=== PATIENT | female | born 1990 | race Caucasian/White ===

== ENCOUNTER 2016-06-23 16:53 | Emergency (ER) | payer MEDICAID ==
[2016-06-23] MEDS ORDERED: DEXAMETHASONE 10 MG/ML VIAL PO STA (18:34)
[2016-06-23] MEDS ORDERED: KETOROLAC 60 MG/2 ML VIAL IM STA (18:34)
[2016-06-23] MEDS ORDERED: DEXAMETHASONE 10 MG/ML VIAL ONE (18:43)
[2016-06-23] MEDS ORDERED: KETOROLAC 60 MG/2 ML VIAL ONE (18:43)
[2016-06-23] MEDS ORDERED: CHERRY SYRUP 10 ML UDC PO ONE (18:44)
== END 2016-06-23 19:15 | disposition home or self-care (01) ==
DX: M54.41 Lumbago with sciatica, right side (principal); F17.200 Nicotine dependence, unspecified, uncomplicated
CPT/HCPCS: 96372; 99283; A9270

== ENCOUNTER 2016-09-11 17:33 | Emergency (ER) | payer OTHER, MEDICAID ==
[2016-09-11] MEDS ORDERED: IBUPROFEN 800 MG TABLET PO STA (18:28)
[2016-09-11] MEDS ORDERED: IBUPROFEN 800 MG TABLET PO ONE (18:37)
[2016-09-11] MEDS ORDERED: ACETAMINOPHEN 325 MG TABLET PO STA (19:29)
[2016-09-11] MEDS ORDERED: ACETAMINOPHEN 325 MG TABLET PO ONE (19:32)
== END 2016-09-11 19:39 | disposition home or self-care (01) ==
DX: S60.211A Contusion of right wrist, initial encounter (principal); W01.0XXA Fall on same level from slipping, tripping and stumbling without subsequent striking against object, initial encounter; Y92.89 Other specified places as the place of occurrence of the external cause; Y99.0 Civilian activity done for income or pay; F17.200 Nicotine dependence, unspecified, uncomplicated
CPT/HCPCS: 73110; 99283; A9270

== ENCOUNTER 2016-09-19 18:01 | Emergency (ER) | payer MEDICAID ==
[2016-09-19 18:11] VITALS: BP 131/81
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
[2016-09-19] MEDS ORDERED: GABAPENTIN 100 MG CAPSULE PO STA (18:35)
[2016-09-19] MEDS ORDERED: CEPHALEXIN 250 MG CAPSULE PO STA (18:35)
[2016-09-19] MEDS ORDERED: ACETAMINOPHEN 325 MG TABLET PO STA (18:35)
[2016-09-19] MEDS ORDERED: IBUPROFEN 600 MG TABLET PO STA (18:35)
[2016-09-19] MEDS ORDERED: ACETAMINOPHEN 325 MG TABLET PO ONE (18:41)
[2016-09-19] MEDS ORDERED: GABAPENTIN 300 MG CAPSULE ONE (18:41)
[2016-09-19] MEDS ORDERED: IBUPROFEN 600 MG TABLET PO ONE (18:41)
[2016-09-19] MEDS ORDERED: CEPHALEXIN 250 MG CAPSULE PO ONE (18:42)
== END 2016-09-19 18:50 | disposition home or self-care (01) ==
LOC: ED 18:01
DX: K04.7 Periapical abscess without sinus (principal); G40.909 Epilepsy, unspecified, not intractable, without status epilepticus; F17.200 Nicotine dependence, unspecified, uncomplicated
CPT/HCPCS: 99283; A9270

== ENCOUNTER 2017-01-13 17:15 | Emergency (ER) | payer MEDICAID ==
[2017-01-13 19:44] VITALS: BP 118/73
--- NOTE | 2017-01-13 20:25 | ED Physician Documentation ---
PD HPI HEENT - Stated complaint Stated Complaint: DENTAL PAIN - Chief complaint Chief Complaint: Heent - History obtained from History obtained from: Patient - History of Present Illness Timing - onset: Chronic Timing - details: Gradual onset, Still present Location: Tooth, Mouth Improves: Nothing Worsens: Temperatures, Everything Associated symptoms: No: Fever, Congestion, Rhinorrhea Similar symptoms before: Work up / diagnostics Recently seen: Not recently seen - Additional information Additional information: Patient is a 26 year old female presenting to the emergency department for multiple dental caries. patient states that for the last few months her teeth have been falling apart. patient states that she tried to get an appointment with [facility] but could not get anything until february so she came to the emergency department. Review of Systems Constitutional: denies: Fever, Chills Eyes: denies: Decreased vision Ears: denies: Ear pain, Drainage/discharge Nose: denies: Rhinorrhea / runny nose, Congestion Throat: reports: Dental pain / toothache. denies: Oral lesions / sores, Sore throat Cardiac: denies: Chest pain / pressure Respiratory: denies: Wheezing GI: denies: Nausea, Vomiting : denies: Dysuria, Frequency Skin: denies: Rash, Lesions, Abrasion (s) Musculoskeletal: denies: Neck pain, Back pain, Extremity pain Neurologic: denies: Generalized weakness, Focal weakness, Altered mental status , Headache Immunocompromised: denies: Immunocompromised PD PAST MEDICAL HISTORY - Past Medical History Past Medical History: Yes Cardiovascular: None Respiratory: None Neuro: Headache/migraine, Seizure disorder Endocrine/Autoimmune: None GI: None 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 : None HEENT: None Psych: None Musculoskeletal: Chronic back pain Derm: None - Past Surgical History Past Surgical History: Yes General: Cholecystectomy HEENT: Tonsil/Adenoidectomy - Present Medications Home Medications: Ambulatory Orders Medication Instructions Recorded Confirmed Gabapentin 600 mg PO QID #120 tablet 02/20/16 01/13/17 Ibuprofen [Motrin] 800 mg PO Q8H PRN #30 tablet 09/11/16 01/13/17 Chlorhexidine Gluconate 15 ml MM QID #473 ml 01/13/17 Lidocaine HCl [Lidocaine HCl 15 ml MM TID #200 ml 01/13/17 Viscous] - Allergies Allergies/Adverse Reactions: Allergies Allergy/AdvReac Type Severity Reaction Status Date / Time codeine Allergy Hives Verified 01/13/17 17:30 nifedipine Allergy Hives Verified 01/13/17 17:30 - Social History Does the pt smoke?: Yes Smoking Status: Current every day smoker Does the pt drink ETOH?: No Does the pt have substance abuse?: No - Immunizations Immunizations are current?: Yes - POLST Patient has POLST: No PD ED PE NORMAL - Vitals Vital signs reviewed: Yes - General General: Alert and oriented X 3, No acute distress - HEENT HEENT: Atraumatic, PERRL, Moist mucous membranes, Pharynx benign - Neck Neck: Supple, no meningeal sign, No adenopathy, No JVD - Cardiac Cardiac: RRR, No murmur - Respiratory Respiratory: No respiratory distress - Abdomen Abdomen: Non distended - Derm Derm: Normal color, Warm and dry, No rash - Extremities Extremities: No deformity, No edema - Neuro Neuro: Alert and oriented X 3, No motor deficit, No sensory deficit, Normal speech - Psych Psych: Normal mood, Normal affect PD ED PE EXPANDED - HEENT HEENT: Other (multiple cracked teeth and dental caries but no signs of abscess, infection or fluid collection) Results - Vitals Vitals: Vital Signs - 24 hr 01/13/17 01/13/17 17:27 19:44 Temperature 36.5 C 36.5 C Heart Rate 90 71 Respiratory 16 18 Rate Blood Pressure 132/85 H 118/73 O2 Saturation 96 99 Oxygen O2 Source Room air PD MEDICAL DECISION MAKING - ED course Complexity details: reviewed old records, re-evaluated patient, considered differential, d/w patient ED course: Patient was seen and examined at bedside. Patient had no signs or abscess or fluid collection but multiple caries. Patient required no imaging or diagnostics at this time and patient was stable for discharge with outpatient follow up. Departure - Departure Disposition: 01 Home, Self Care Clinical Impression: Dental caries, Pain due to dental caries Condition: Good Instructions: Decay Tooth Follow-Up: primary,care provider [Other] Prescriptions: Chlorhexidine Gluconate 15 ml MM QID #473 ml Lidocaine HCl [Lidocaine HCl Viscous] 15 ml MM TID #200 ml Comments: There was no sign of abscess or fluid collection today. Sadly the only thing that is going to help is to get your teeth pulled. You should continue with motrin and tylenol for pain. You could try teeth guards for the grinding or even football mouth pieces. You have been prescribed an antibiotic mouth wash, as well as lidocaine that you can swish in your mouth and spit out. You should go to your dental appointment as you previously planned. Discharge Date/Time: 01/13/17 20:34
== END 2017-01-13 20:34 | disposition home or self-care (01) ==
LOC: ED 17:15
DX: K02.9 Dental caries, unspecified (principal); K08.89 Other specified disorders of teeth and supporting structures; F17.200 Nicotine dependence, unspecified, uncomplicated
CPT/HCPCS: 99283

== ENCOUNTER 2017-01-23 19:11 | Emergency (ER) | payer MEDICAID ==
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
[2017-01-23] MEDS ORDERED: GABAPENTIN 100 MG CAPSULE PO STA (21:12)
[2017-01-23] MEDS ORDERED: GABAPENTIN 300 MG CAPSULE ONE (21:21)
[2017-01-23 21:24] VITALS: BP 117/71
== END 2017-01-23 21:23 | disposition home or self-care (01) ==
LOC: ED 19:11
DX: K08.89 Other specified disorders of teeth and supporting structures (principal); Z76.0 Encounter for issue of repeat prescription; G40.909 Epilepsy, unspecified, not intractable, without status epilepticus; F17.200 Nicotine dependence, unspecified, uncomplicated
CPT/HCPCS: 99283; A9270

== ENCOUNTER 2017-02-10 16:53 | Emergency (ER) | payer MEDICAID ==
[2017-02-10 16:58] VITALS: BP 129/82
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
== END 2017-02-10 17:45 | disposition home or self-care (01) ==
LOC: ED 16:53
DX: Z76.0 Encounter for issue of repeat prescription (principal); G40.909 Epilepsy, unspecified, not intractable, without status epilepticus; L01.00 Impetigo, unspecified; F17.200 Nicotine dependence, unspecified, uncomplicated
CPT/HCPCS: 99283

== ENCOUNTER 2017-03-30 19:23 | Emergency (ER) | payer MEDICAID ==
[2017-03-30] MEDS ORDERED: SULFAMETH/TRIMETH DS 800/160 MG TABLET PO STA (20:22)
--- NOTE | 2017-03-30 20:25 | ED Physician Documentation ---
History of Present Illness - Stated complaint Stated Complaint: SKIN INFECTION - Chief complaint Chief Complaint: Ext Problem - History obtained from History obtained from: Patient - History of Present Illness Timing: Other (For the last few weeks she has had increasing numbers of skin wounds that are somewhat painful, they are all over. She does have a history of MRSA. No lesions in the nose. She feels like she has had some low-grade fevers. 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 02/10/17 Chlorhexidine Gluconate [Hibiclens] 5 ml TP DAILY #1 bot 03/30/17 Gabapentin 600 mg PO QID #40 tablet 03/30/17 Mupirocin 1 gm ALICIA BID #2 tub 03/30/17 Sulfamethoxazole/Trimethoprim 1 each PO BID 10 Days tablet 03/30/17 [Sulfamethoxazole-Tmp Ds Tablet] - Allergies Allergies/Adverse Reactions: Allergies Allergy/AdvReac Type Severity Reaction Status Date / Time codeine Allergy Hives Verified 03/30/17 19:46 nifedipine Allergy Hives Verified 03/30/17 19:46 - Social History Does the pt smoke?: Yes Smoking Status: Current every day smoker Does the pt drink ETOH?: No Does the pt have substance abuse?: No - Immunizations Immunizations are current?: Yes - POLST Patient has POLST: No PD ED PE NORMAL - Vitals Vital signs reviewed: Yes - General General: Alert and oriented X 3, No acute distress - Neck Neck: Supple, no meningeal sign, No bony TTP - Cardiac Cardiac: RRR, No murmur - Respiratory Respiratory: No respiratory distress, Clear bilaterally - Derm Derm: Other (Numerous scabbed over skin lesions on the trunk, arms. They appear consistent with staff. Nothing really to culture, I did swab a few of the larger ones which were no bigger than a dime. However there was no purulent material per se.) Results - Vitals Vitals: Vital Signs - 24 hr 03/30/17 19:42 Temperature 37.3 C Heart Rate 83 Respiratory 16 Rate Blood Pressure 122/79 O2 Saturation 100 Oxygen O2 Source Room air PD MEDICAL DECISION MAKING - ED course ED course: 26-year-old woman with what appears to be staphylococcal skin infection but no evidence of sepsis. She is started on Bactrim and treat also with Hibiclens, mupirocin, her gabapentin is refilled. Departure - Departure Disposition: 01 Home, Self Care Clinical Impression: Staph skin infection Condition: Good Record reviewed to determine appropriate education?: Yes Instructions: ED Skin Infec MRSA Suspect Conf Prescriptions: Chlorhexidine Gluconate [Hibiclens] 5 ml TP DAILY #1 bot Gabapentin 600 mg PO QID #40 tablet Mupirocin 1 gm ALICIA BID #2 tub Sulfamethoxazole/Trimethoprim [Sulfamethoxazole-Tmp Ds Tablet] 1 each PO BID 10 Days tablet Comments: Call your doctor to arrange a follow-up appointment, make the next available appointment. In the interim, return anytime if worse or if new symptoms develop. We are performing a wound culture, the results should be done in 48-72 hours. If antibiotic change is necessary we will call you. Return if worse in the meantime, especially if you develop increased pain, fevers, cannot keep down the medication. Otherwise follow-up with your physician in approximately 2-3 days.
[2017-03-30] MEDS ORDERED: SULFAMETH/TRIMETH DS 800/160 MG TABLET PO ONE (20:37)
[2017-03-30 20:41] VITALS: BP 108/71
== END 2017-03-30 20:40 | disposition home or self-care (01) ==
LOC: ED 19:23
DX: L08.89 Other specified local infections of the skin and subcutaneous tissue (principal); B95.62 Methicillin resistant Staphylococcus aureus infection as the cause of diseases classified elsewhere; F17.200 Nicotine dependence, unspecified, uncomplicated
CPT/HCPCS: 87070; 87205; 99283; A9270

== ENCOUNTER 2017-05-17 15:13 | Emergency (ER) | payer MEDICAID ==
[2017-05-17 15:22] VITALS: BP 110/74
--- NOTE | 2017-05-17 16:39 | ED Physician Documentation ---
History of Present Illness - Stated complaint Stated Complaint: MED REFILL - Chief complaint Chief Complaint: Back Pain - History obtained from History obtained from: Patient - History of Present Illness Timing: How many days ago (2) - Additonal information Additional information: 27-year-old female is moving back to the [place] and she is out of her gabapentin again. 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 She has been out of her gabapentin for 2 days and she is beginning to feel numbness in her right leg. 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 02/10/17 Chlorhexidine Gluconate [Hibiclens] 5 ml TP DAILY #1 bot 03/30/17 Gabapentin 600 mg PO QID #40 tablet 03/30/17 Mupirocin 1 gm ALICIA BID #2 tub 03/30/17 Sulfamethoxazole/Trimethoprim 1 each PO BID 10 Days tablet 03/30/17 [Sulfamethoxazole-Tmp Ds Tablet] Gabapentin 600 mg PO QID #120 tablet 05/17/17 - Allergies Allergies/Adverse Reactions: Allergies Allergy/AdvReac Type Severity Reaction Status Date / Time codeine Allergy Hives Verified 03/30/17 19:46 nifedipine Allergy Hives Verified 03/30/17 19:46 - Social History Does the pt smoke?: Yes Smoking Status: Current every day smoker Does the pt drink ETOH?: No Does the pt have substance abuse?: No - Immunizations Immunizations are current?: Yes - POLST Patient has POLST: No PD ED PE NORMAL - Vitals Vital signs reviewed: Yes (tachy) - General General: Alert and oriented X 3, No acute distress, Well developed/nourished - Respiratory Respiratory: No respiratory distress - Derm Derm: Normal color, Warm and dry, No rash - Extremities Extremities: No deformity, No edema - Neuro Neuro: No motor deficit, No sensory deficit Eye Opening: Spontaneous Motor: Obeys Commands Verbal: Oriented GCS Score: 15 - Psych Psych: Normal mood, Normal affect Results - Vitals Vitals: Vital Signs - 24 hr 05/17/17 15:19 Temperature 36.7 C Heart Rate 106 H Respiratory 18 Rate Blood Pressure 110/74 O2 Saturation 100 Oxygen O2 Source Room air PD MEDICAL DECISION MAKING - ED course Complexity details: reviewed old records, considered differential, d/w patient ED course: 27-year-old female on gabapentin for the past 3 years is out of her medication and will need a refill. She is expecting to get into an [facility] [facility] in about 3 weeks time in [place]. She has an appointment already set up for that time. I discussed with the patient self directed physical therapy for back rehabilitation and we will refill her gabapentin today. Departure - Departure Disposition: 01 Home, Self Care Clinical Impression: Medication refill Condition: Stable Instructions: Low Back Pain Self Care Follow-Up: Your, doctor [Other] Prescriptions: Gabapentin 600 mg PO QID #120 tablet
== END 2017-05-17 16:43 | disposition home or self-care (01) ==
LOC: ED 15:13
DX: G40.909 Epilepsy, unspecified, not intractable, without status epilepticus (principal); G62.9 Polyneuropathy, unspecified; Z76.0 Encounter for issue of repeat prescription; F17.200 Nicotine dependence, unspecified, uncomplicated
CPT/HCPCS: 99281; 99283

== ENCOUNTER 2017-08-18 20:19 | Emergency (ER) | payer MEDICAID ==
--- NOTE | 2017-08-18 22:40 | ED Physician Documentation ---
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 02/10/17 Chlorhexidine Gluconate [Hibiclens] 5 ml TP DAILY #1 bot 03/30/17 Gabapentin 600 mg PO QID #40 tablet 03/30/17 Mupirocin 1 gm ALICIA BID #2 tub 03/30/17 Sulfamethoxazole/Trimethoprim 1 each PO BID 10 Days tablet 03/30/17 [Sulfamethoxazole-Tmp Ds Tablet] Gabapentin 600 mg PO QID #120 tablet 05/17/17 - Allergies Allergies/Adverse Reactions: Allergies Allergy/AdvReac Type Severity Reaction Status Date / Time codeine Allergy Hives Verified 08/18/17 20:35 nifedipine Allergy Hives Verified 08/18/17 20:35 - Social History Does the pt smoke?: Yes Smoking Status: Current every day smoker Does the pt drink ETOH?: No Does the pt have substance abuse?: No - Immunizations Immunizations are current?: Yes - POLST Patient has POLST: No Results - Vitals Vitals: Vital Signs - 24 hr 08/18/17 20:34 Temperature 36.8 C Heart Rate 70 Respiratory 18 Rate Blood Pressure 118/76 O2 Saturation 99 Oxygen O2 Source Room air
[2017-08-18] MEDS ORDERED: NAPROXEN 250 MG TABLET PO STA (22:49)
[2017-08-18] MEDS ORDERED: cephALEXin 250 MG CAPSULE PO STA (22:49)
[2017-08-18] MEDS ORDERED: GABAPENTIN 100 MG CAPSULE PO STA (22:49)
[2017-08-18] MEDS ORDERED: traMADol 50 MG TABLET PO STA (22:50)
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
[2017-08-18 23:00] VITALS: BP 120/72
== END 2017-08-18 22:59 | disposition home or self-care (01) ==
LOC: ED 20:19
DX: K04.7 Periapical abscess without sinus (principal); K02.9 Dental caries, unspecified; K08.89 Other specified disorders of teeth and supporting structures; G89.29 Other chronic pain; Z76.0 Encounter for issue of repeat prescription; G40.909 Epilepsy, unspecified, not intractable, without status epilepticus; Z79.899 Other long term (current) drug therapy; F17.200 Nicotine dependence, unspecified, uncomplicated
CPT/HCPCS: 99283; A9270

== ENCOUNTER 2017-09-28 18:57 | Emergency (ER) | payer MEDICAID ==
[2017-09-28 19:08] VITALS: BP 126/73
[2017-09-28] MEDS ORDERED: CLINDAMYCIN 150 MG CAPSULE PO STA (20:22)
[2017-09-28] MEDS ORDERED: ACETAMINOPHEN 500 MG TABLET PO STA (20:22)
--- NOTE | 2017-09-28 20:26 | ED Physician Documentation ---
PD HPI SKIN - Stated complaint Stated Complaint: LF ELBOW PLANT REACTION - Chief complaint Chief Complaint: Ext Problem - History obtained from History obtained from: Patient, Family - History of Present Illness Timing - onset: Yesterday Timing - details: Gradual onset, Still present Location: LUE Quality / character: Painful, Discolored Associated symptoms: Fever Contributing factors: Other Recently seen: Not recently seen - Additional information Additional information: patient is a 27 year old female presenting to the emergency department for a rash on her elbow. 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 Yesterday she started to develop a worsening rash. patient does report a history of mrsa in the past. 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 02/10/17 Chlorhexidine Gluconate [Hibiclens] 5 ml TP DAILY #1 bot 03/30/17 Gabapentin 600 mg PO QID #40 tablet 03/30/17 Mupirocin 1 gm ALICIA BID #2 tub 03/30/17 Sulfamethoxazole/Trimethoprim 1 each PO BID 10 Days tablet 03/30/17 [Sulfamethoxazole-Tmp Ds Tablet] Gabapentin 600 mg PO QID #120 tablet 05/17/17 Cephalexin [Keflex] 500 mg PO TID #20 capsule 08/18/17 Gabapentin 600 mg PO QID #100 tablet 08/18/17 Naproxen 375 mg PO BID #20 tablet 08/18/17 Clindamycin HCl [Clindamycin 300MG 300 mg PO Q6H 7 Days capsule 09/28/17 CAP] - Allergies Allergies/Adverse Reactions: Allergies Allergy/AdvReac Type Severity Reaction Status Date / Time codeine Allergy Hives Verified 09/28/17 19:07 nifedipine Allergy Hives Verified 09/28/17 19:07 - Social History Does the pt smoke?: Yes Smoking Status: Current every day smoker Does the pt drink ETOH?: No Does the pt have substance abuse?: No - Immunizations Immunizations are current?: Yes - POLST Patient has POLST: No PD ED PE NORMAL - Vitals Vital signs reviewed: Yes - General General: Alert and oriented X 3 - HEENT HEENT: Atraumatic - Cardiac Cardiac: RRR - Respiratory Respiratory: No respiratory distress - Abdomen Abdomen: Non distended - Neuro Neuro: Alert and oriented X 3 Eye Opening: Spontaneous PD ED PE EXPANDED - Extremities Extremities: Left elbow (well circumscribed rash over the right elbow) Results - Vitals Vitals: Vital Signs - 24 hr 09/28/17 19:02 Temperature 36.1 C L Heart Rate 88 Respiratory 20 Rate Blood Pressure 126/73 O2 Saturation 100 Oxygen O2 Source Room air PD MEDICAL DECISION MAKING - ED course Complexity details: reviewed old records, reviewed results, re-evaluated patient , considered differential, d/w patient, d/w family ED course: patient was seen and examined at bedside. patient's rash appeared to be cellulitic. Patient's rash was outlined and due to patient's history MRSA coverage was required. Patient was given the options and she chose clindamycin. Patient and family were made aware that there was a possibility of sporotrichosis with detailed discharge and follow up instructions. there was no lesion to culture at this time. patient required no further work up at this time and was stable for discharge with outpatient follow up. Departure - Departure Disposition: 01 Home, Self Care Clinical Impression: Cellulitis Condition: Good Instructions: Cellulitis Dc Follow-Up: primary,care provider [Other] Prescriptions: Clindamycin HCl [Clindamycin 300MG CAP] 300 mg PO Q6H 7 Days capsule Comments: Your symptoms today are most likely being caused by a skin infection. you will be started on antibiotics that you take 4 times a day. you should start to see improvement over the next 48hours. There is a chance that this is a fugal infection so you will need to watch the wound closer and look for ulceration and spreading. you should take the antibiotic with yogurt or probiotics to help reduce the GI side effects. You can take ibuprofen 600mg and tylenol 1000mg, as well as ice as needed for pain. You may return to the emergency department at any time for new, worsening or uncontrollable symptoms. Discharge Date/Time: 09/28/17 20:28
== END 2017-09-28 20:28 | disposition home or self-care (01) ==
LOC: ED 18:57
DX: L03.114 Cellulitis of left upper limb (principal); Z86.14 Personal history of Methicillin resistant Staphylococcus aureus infection; F17.200 Nicotine dependence, unspecified, uncomplicated
CPT/HCPCS: 99283; A9270

== ENCOUNTER 2017-11-16 15:23 | Emergency (ER) | payer MEDICAID ==
--- NOTE | 2017-11-16 15:45 | ED Physician Documentation ---
PD HPI HEENT - Stated complaint Stated Complaint: TOOTH PX - Chief complaint Chief Complaint: Heent - History obtained from History obtained from: Patient - History of Present Illness Timing - onset: How many weeks ago (1 week of pain, got worse yesterday. Tried to get dental appt but appt not for couple of weeks.) Timing - details: Gradual onset, Still present, Constant Location: Tooth (right lower) Associated symptoms: Facial swelling (mild right mandible). 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 02/10/17 Chlorhexidine Gluconate [Hibiclens] 5 ml TP DAILY #1 bot 03/30/17 Gabapentin 600 mg PO QID #40 tablet 03/30/17 Mupirocin 1 gm ALICIA BID #2 tub 03/30/17 Sulfamethoxazole/Trimethoprim 1 each PO BID 10 Days tablet 03/30/17 [Sulfamethoxazole-Tmp Ds Tablet] Gabapentin 600 mg PO QID #120 tablet 05/17/17 Cephalexin [Keflex] 500 mg PO TID #20 capsule 08/18/17 Gabapentin 600 mg PO QID #100 tablet 08/18/17 Naproxen 375 mg PO BID #20 tablet 08/18/17 Clindamycin HCl [Clindamycin 300MG 300 mg PO Q6H 7 Days capsule 09/28/17 CAP] Cephalexin [Keflex] 500 mg PO TID #21 capsule 11/16/17 HYDROcod/ACETAM 5/325 [Enigma 5/325] 1 tab PO Q6H PRN #20 tablet 11/16/17 - Allergies Allergies/Adverse Reactions: Allergies Allergy/AdvReac Type Severity Reaction Status Date / Time codeine Allergy Hives Verified 11/16/17 15:32 nifedipine Allergy Hives Verified 11/16/17 15:32 - Social History Does the pt smoke?: Yes Smoking Status: Current every day smoker Does the pt drink ETOH?: No Does the pt have substance abuse?: No - Immunizations Immunizations are current?: Yes - POLST Patient has POLST: No PD ED PE NORMAL - Vitals Vital signs reviewed: Yes - General General: Alert and oriented X 3, Well developed/nourished, Other (appears in pain) - HEENT HEENT: No: Dentition benign (marked decay of molars lower right, with some swelling of gum at the base of them. ) - Neck Neck: Supple, no meningeal sign, No adenopathy - Cardiac Cardiac: RRR, No murmur - Respiratory Respiratory: Clear bilaterally - Derm Derm: Normal color, Warm and dry, No rash Results - Vitals Vitals: Oxygen O2 Source Room air PD MEDICAL DECISION MAKING - ED course Complexity details: re-evaluated patient (no numbness of teeth nor lip post dental block, so tried again and still no numbness. So I did not get it in correct location presumedly. ), considered differential (some swelling of gum around base of very decayed tooth. ), d/w patient - Sepsis Event Vital Signs: Oxygen O2 Source Room air Departure - Departure Disposition: 01 Home, Self Care Clinical Impression: Pain, dental, Dental infection Condition: Stable Record reviewed to determine appropriate education?: Yes Instructions: ED Abscess Dental Prescriptions: Cephalexin [Keflex] 500 mg PO TID #21 capsule HYDROcod/ACETAM 5/325 [Enigma 5/325] 1 tab PO Q6H PRN #20 tablet PRN Reason: Pain Comments: Drink lots of fluids. Ibuprofen or naproxen 2-3 times a day for inflammation and pain. Add Tylenol or hydrocodone if needed for pain. Cephalexin 3 times a day for a week for infection. Follow-up with dentist as soon as appointment. Discharge Date/Time: 11/16/17 17:32
[2017-11-16] MEDS ORDERED: BUPIVACAINE 0.5% PF 10 ML VIAL SUBQ STA (16:04)
[2017-11-16] MEDS ORDERED: cephALEXin 250 MG CAPSULE PO STA (16:05)
[2017-11-16] MEDS ORDERED: IBUPROFEN 600 MG TABLET PO STA (16:05)
[2017-11-16 17:06] VITALS: BP 116/61
[2017-11-16] MEDS ORDERED: HYDROcod/ACETAM 5/325 MG TABLET PO STA (17:18)
== END 2017-11-16 17:32 | disposition home or self-care (01) ==
LOC: ED 15:23
DX: K04.7 Periapical abscess without sinus (principal)
CPT/HCPCS: 99283; A9270

== ENCOUNTER 2017-12-27 15:53 | Emergency (ER) | payer MEDICAID ==
[2017-12-27] MEDS ORDERED: DEXAMETHASONE 10 MG/ML VIAL PO STA (17:09)
[2017-12-27] MEDS ORDERED: oxyCODONE 5 MG TABLET PO STA (17:10)
--- NOTE | 2017-12-27 17:12 | ED Physician Documentation ---
History of Present Illness - Stated complaint Stated Complaint: MOUTH SWELLING - Chief complaint Chief Complaint: Heent - History obtained from History obtained from: Patient, Family - History of Present Illness Timing: How many days ago (several days) Pain level max: 8 Pain level now: 7 - Additonal information Additional information: Patient is a 27-year-old female who was at her dentist 2 days ago and told that she has infected teeth that need to be removed, however she had a wedding this weekend and did not want them removed until after the wedding. She began to develop facial swelling yesterday, was seen at [facility] where a CT scan and laboratory testing was performed. There were no drainable abscesses at that time. She was given IV antibiotics as well as dexamethasone, 10 mg IV. Also given IV fluids. And was discharged on clindamycin as well as oxycodone. She has stopped her Suboxone while she is taking the oxycodone. She states that she had a fever yesterday as well. No fevers today. Feeling much improved and decreased swelling in the face. She is however out of her oxycodone as they only gave her 2 pills and her dentist is out of town until Thursday. She is requesting a refill of pain medications here. 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 02/10/17 Chlorhexidine Gluconate [Hibiclens] 5 ml TP DAILY #1 bot 03/30/17 Gabapentin 600 mg PO QID #40 tablet 03/30/17 Mupirocin 1 gm ALICIA BID #2 tub 03/30/17 Sulfamethoxazole/Trimethoprim 1 each PO BID 10 Days tablet 03/30/17 [Sulfamethoxazole-Tmp Ds Tablet] Gabapentin 600 mg PO QID #120 tablet 05/17/17 Cephalexin [Keflex] 500 mg PO TID #20 capsule 08/18/17 Gabapentin 600 mg PO QID #100 tablet 08/18/17 Naproxen 375 mg PO BID #20 tablet 08/18/17 Clindamycin HCl [Clindamycin 300MG 300 mg PO Q6H 7 Days capsule 09/28/17 CAP] Cephalexin [Keflex] 500 mg PO TID #21 capsule 11/16/17 HYDROcod/ACETAM 5/325 [[place] 5/325] 1 tab PO Q6H PRN #20 tablet 11/16/17 Oxycodone HCl 10 mg PO Q6HR PRN #10 tablet 12/27/17 - Allergies Allergies/Adverse Reactions: Allergies Allergy/AdvReac Type Severity Reaction Status Date / Time codeine Allergy Hives Verified 12/27/17 16:07 nifedipine Allergy Hives Verified 12/27/17 16:07 - Social History Does the pt smoke?: Yes Smoking Status: Current every day smoker Does the pt drink ETOH?: No Does the pt have substance abuse?: No - Immunizations Immunizations are current?: Yes - POLST Patient has POLST: No PD ED PE NORMAL - Vitals Vital signs reviewed: Yes - General General: Alert and oriented X 3, No acute distress - HEENT HEENT: Moist mucous membranes, Other (Uvula midline. There is mild facial swelling along the right lower mandible. No drainable abscess. No Elias's angina. Mild trismus. Normal phonation) - Neck Neck: Supple, no meningeal sign, Other (Mild right sided cervical lymphadenopathy) - Cardiac Cardiac: RRR, No murmur, Strong equal pulses - Respiratory Respiratory: No respiratory distress, Clear bilaterally - Abdomen Abdomen: Soft, Non tender, Non distended - Derm Derm: Warm and dry - Neuro Neuro: Alert and oriented X 3 - Psych Psych: Normal mood, Normal affect Results - Vitals Vitals: Vital Signs - 24 hr 12/27/17 12/27/17 16:03 17:28 Temperature 36.4 C L 36.6 C Heart Rate 70 67 Respiratory 18 12 Rate Blood Pressure 118/66 100/62 O2 Saturation 100 99 Oxygen O2 Source Room air PD MEDICAL DECISION MAKING - ED course Complexity details: reviewed old records ([place] ED visit yesterday), re- evaluated patient, considered differential, d/w patient ED course: Patient is a 27-year-old female with dental caries and facial cellulitis. No drainable abscess today. She is much improved from yesterday. Will prescribe a small amount of pain medications for her until she can see her dentist on Thursday. We will have her continue the antibiotics. Tolerating p.o. without difficulty here. Given a second dose of dexamethasone here. Patient counseled regarding signs and symptoms for which I believe and urgent re-evaluation would be necessary. Patient with good understanding of and agreement to plan and is comfortable going home at this time This document was made in part using voice recognition software. While efforts are made to proofread this document, sound alike and grammatical errors may occur. - Sepsis Event Vital Signs: Vital Signs - 24 hr 12/27/17 12/27/17 16:03 17:28 Temperature 36.4 C L 36.6 C Heart Rate 70 67 Respiratory 18 12 Rate Blood Pressure 118/66 100/62 O2 Saturation 100 99 Oxygen O2 Source Room air Departure - Departure Disposition: 01 Home, Self Care Clinical Impression: Dental caries, Facial cellulitis Condition: Good Instructions: ED Cellulitis Facial, ED Tooth Pain Follow-Up: ZANA CUEVA DDS [Physician No Access] - Within 3 Days Prescriptions: Oxycodone HCl 10 mg PO Q6HR PRN #10 tablet PRN Reason: dental pain Comments: Continue your antibiotics as previously prescribed. Return if you worsen. This should improve over the next 24 hours. Make sure to follow-up with your dentist for further care. Do not drink alcohol or drive while on narcotic pain medicine. Note that many narcotic pain relievers also contain tylenol/acetaminophen. Please ensure that your total dose of acetaminophen from all sources does not exceed 3 grams (3000mg) per day. You may constipated on this medication, take a stool softener such as "Colace" twice a day while you are on it. Also recommend a [id number] laxative such as senna or MiraLAX any day that you do not have a bowel movement. If you received narcotic pain medication in the emergency department, do not drive or operate machinery for the next 24 hours. Discharge Date/Time: 12/27/17 17:31
[2017-12-27] MEDS ORDERED: CHERRY SYRUP 10 ML UDC PO ONE (17:20)
[2017-12-27 17:30] VITALS: BP 100/62
== END 2017-12-27 17:31 | disposition home or self-care (01) ==
LOC: ED 15:53
DX: K02.9 Dental caries, unspecified (principal); L03.211 Cellulitis of face; F17.200 Nicotine dependence, unspecified, uncomplicated
CPT/HCPCS: 99283; A9270

== ENCOUNTER 2018-03-19 17:03 | Emergency (ER) | payer MEDICAID ==
[2018-03-19 17:18] VITALS: BP 120/92
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
== END 2018-03-19 17:50 | disposition home or self-care (01) ==
LOC: ED 17:03
DX: Z76.0 Encounter for issue of repeat prescription (principal); Z79.899 Other long term (current) drug therapy; F17.200 Nicotine dependence, unspecified, uncomplicated
CPT/HCPCS: 99283

== ENCOUNTER 2018-05-12 18:33 | Emergency (ER) | payer MEDICAID ==
--- NOTE | 2018-05-12 19:02 | ED Physician Documentation ---
PD HPI CHEST PAIN - Stated complaint Stated Complaint: SOA - Chief complaint Chief Complaint: Resp - History obtained from History obtained from: Patient - History of Present Illness Timing - onset: Other (For the last 2 weeks or so she has had inexplicable shortness of breath with some mild pain with deep breathing on the left chest when she takes a deep breath. There is no associated cough, fever, or runny nose, or pedal edema. She is on Nexplanon for control. No history of cardiac or pulmonary disease.) Review of Systems Constitutional: denies: Fever, Chills Nose: denies: Rhinorrhea / runny nose, Congestion Cardiac: reports: Chest pain / pressure. denies: Palpitations, Pedal edema, Calf pain Respiratory: reports: Dyspnea. 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 02/10/17 RX: Gabapentin 600 mg PO QID #120 tablet 02/10/17 Chlorhexidine Gluconate [Hibiclens] 5 ml TP DAILY #1 bot 03/30/17 RX: Gabapentin 600 mg PO QID #40 tablet 03/30/17 RX: Mupirocin 1 gm ALICIA BID #2 tub 03/30/17 Sulfamethoxazole/Trimethoprim 1 each PO BID 10 Days tablet 03/30/17 [Sulfamethoxazole-Tmp Ds Tablet] RX: Gabapentin 600 mg PO QID #120 tablet 05/17/17 Cephalexin [Keflex] 500 mg PO TID #20 capsule 08/18/17 RX: Gabapentin 600 mg PO QID #100 tablet 08/18/17 RX: Naproxen 375 mg PO BID #20 tablet 08/18/17 RX: Clindamycin HCl [Clindamycin 300 mg PO Q6H 7 Days capsule 09/28/17 300MG CAP] Cephalexin [Keflex] 500 mg PO TID #21 capsule 11/16/17 HYDROcod/ACETAM 5/325 [[place] 5/325] 1 tab PO Q6H PRN #20 tablet 11/16/17 RX: Oxycodone HCl 10 mg PO Q6HR PRN #10 tablet 12/27/17 RX: Gabapentin 600 mg PO TID #21 tablet 03/19/18 RX: Albuterol Sulf [Ventolin Hfa 1 - 2 puffs INH Q4HR PRN #1 inhaler 05/12/18 Inhaler] - Allergies Allergies/Adverse Reactions: Allergies Allergy/AdvReac Type Severity Reaction Status Date / Time codeine Allergy Hives Verified 05/12/18 18:56 nifedipine Allergy Hives Verified 05/12/18 18:56 - Social History Does the pt smoke?: Yes Smoking Status: Current every day smoker Does the pt drink ETOH?: No Does the pt have substance abuse?: No - Immunizations Immunizations are current?: Yes - POLST Patient has POLST: No PD ED PE NORMAL - Vitals Vital signs reviewed: Yes - General General: Alert and oriented X 3, No acute distress - HEENT HEENT: PERRL, EOMI - Neck Neck: Supple, no meningeal sign, No bony TTP - Cardiac Cardiac: RRR, No murmur - Respiratory Respiratory: No respiratory distress, Other (Focal mild wheeze at the left base) - Abdomen Abdomen: Non tender - Extremities Extremities: No edema, No calf tenderness / cord - Neuro Neuro: Alert and oriented X 3, Normal speech - Psych Psych: Normal mood, Normal affect Results - Vitals Vitals: Vital Signs - 24 hr 05/12/18 05/12/18 18:53 19:02 Temperature 37.0 C 36.7 C Heart Rate 90 93 Respiratory 18 18 Rate Blood Pressure 132/70 H 123/75 O2 Saturation 100 100 Oxygen O2 Source Room air - EKG (time done) 1934 Rate: Rate (enter#) (83) Rhythm: NSR [place]: Normal Intervals: Normal GA QRS: Normal Ischemia: Normal ST segments Computer interpretation: Agree with computer - Labs Labs: Laboratory Tests 05/12/18 05/12/18 05/12/18 19:09 19:09 19:09 WBC 10.8 RBC 4.24 Hgb 13.8 Hct 41.2 MCV 97.2 MCH 32.6 H MCHC 33.5 RDW 13.6 Plt Count 184 MPV 9.6 Neut # (Auto) 7.6 H Lymph # (Auto) 2.3 Cochran # (Auto) 0.5 Eos # (Auto) 0.3 Baso # (Auto) 0.1 Absolute Nucleated RBC 0.01 Nucleated RBC % 0.1 D-Dimer < 200.0 L Sodium 137 Potassium 3.5 Chloride 103 Carbon Dioxide 28 Anion Gap 6.0 BUN 6 Creatinine 0.6 Estimated GFR (MDRD) 119 Glucose 89 Calcium 8.9 Total Bilirubin 0.3 AST 24 ALT 22 Alkaline Phosphatase 77 Total Protein 6.4 L Albumin 4.2 Globulin 2.2 Albumin/Globulin Ratio 1.9 Lipase 28 Urine Color Urine Clarity Urine pH Ur Specific [place] Urine Protein Urine Glucose (UA) Urine Ketones Urine Occult Blood Urine Nitrite Urine Bilirubin Urine Urobilinogen Ur Leukocyte Esterase Ur Microscopic Review Urine Culture Comments Urine HCG, Qual 05/12/18 19:25 WBC RBC Hgb Hct MCV MCH MCHC RDW Plt Count MPV Neut # (Auto) Lymph # (Auto) Cochran # (Auto) Eos # (Auto) Baso # (Auto) Absolute Nucleated RBC Nucleated RBC % D-Dimer Sodium Potassium Chloride Carbon Dioxide Anion Gap BUN Creatinine Estimated GFR (MDRD) Glucose Calcium Total Bilirubin AST ALT Alkaline Phosphatase Total Protein Albumin Globulin Albumin/Globulin Ratio Lipase Urine Color YELLOW Urine Clarity CLEAR Urine pH 7.0 Ur Specific [place] 1.015 Urine Protein NEGATIVE Urine Glucose (UA) NEGATIVE Urine Ketones NEGATIVE Urine Occult Blood NEGATIVE Urine Nitrite NEGATIVE Urine Bilirubin NEGATIVE Urine Urobilinogen 0.2 (NORMAL) Ur Leukocyte Esterase NEGATIVE Ur Microscopic Review NOT INDICATED Urine Culture Comments NOT INDICATED Urine HCG, Qual NEGATIVE - Rads (name of study) 2v chest Radiology: EMP read contemporaneously (Normal) PD MEDICAL DECISION MAKING - ED course ED course: 28-year-old woman presents with shortness of breath and pleuritic chest pain. Has a focal wheeze of the left base in light of a normal chest x-ray. Ruled out for PE with d-dimer and the remainder of her workup including troponin and EKG and chest x-ray are negative. Departure - Departure Disposition: 01 Home, Self Care Clinical Impression: Dyspnea Condition: Good Record reviewed to determine appropriate education?: Yes Instructions: ED Dyspnea Shortness of Breath Prescriptions: RX: Albuterol Sulf [Ventolin Hfa Inhaler] 1 - 2 puffs INH Q4HR PRN #1 inhaler PRN Reason: Shortness Of Air/Wheezing Comments: Call your doctor to arrange a follow-up appointment, make the next available appointment. In the interim, return anytime if worse or if new symptoms develop. Discharge Date/Time: 05/12/18 20:02
[2018-05-12 19:03] VITALS: BP 123/75
[2018-05-12 19:16] LABS: BASOPHILS # (AUTO) 0.1 10^3/uL (0.0-0.1); BASOPHILS % (AUTO) 0.7 %; EOSINOPHILS # (AUTO) 0.3 10^3/uL (0.0-0.7); EOSINOPHILS % (AUTO) 3.2 %; HGB - HEMOGLOBIN 13.8 g/dL (12.0-16.0); LYMPHOCYTES # (AUTO) 2.3 10^3/uL (1.5-3.5); LYMPHOCYTES % (AUTO) 21.1 %; MEAN CORPUSCULAR HEMOGLOBIN 32.6 pg (27.0-31.0); MEAN CORPUSCULAR HGB CONC 33.5 g/dL (32.0-36.0); MEAN CORPUSCULAR VOLUME 97.2 fL (81.0-99.0); MEAN PLATELET VOLUME 9.6 fL (7.9-10.8); MONOCYTES # (AUTO) 0.5 10^3/uL (0.0-1.0); MONOCYTES % (AUTO) 4.9 %; NEUTROPHILS # (AUTO) 7.6 10^3/uL (1.5-6.6); NEUTROPHILS % (AUTO) 70.1 %; PLT - PLATELET COUNT 184 10^3/uL (130-450); RED BLOOD COUNT 4.24 10^6/uL (4.20-5.40); RED CELL DISTRIBUTION WIDTH 13.6 % (12.0-15.0); WHITE BLOOD COUNT 10.8 x10^3/uL (4.8-10.8)
[2018-05-12 19:26] LABS: ALBUMIN 4.2 g/dL (3.2-5.5); ALBUMIN/GLOBULIN RATIO 1.9 (1.0-2.2); BILIRUBIN,TOTAL 0.3 mg/dL (0.2-1.0); CALCIUM 8.9 mg/dL (8.5-10.3); CREATININE 0.6 mg/dL (0.4-1.0); TOTAL PROTEIN 6.4 g/dL (6.7-8.2)
[2018-05-12 19:36] LABS: BILIRUBIN,URINE NEGATIVE (NEGATIVE); GLUCOSE, URINE (UA) NEGATIVE (NEGATIVE); KETONES,URINE (UA) NEGATIVE (NEGATIVE); LEUKOCYTE ESTERASE, URINE NEGATIVE (NEGATIVE); NITRITE,URINE NEGATIVE (NEGATIVE); OCCULT BLOOD,URINE NEGATIVE (NEGATIVE); PROTEIN,URINE NEGATIVE (NEGATIVE); UROBILINOGEN,URINE 0.2 (NORMAL) E.U./dL (NORMAL)
[2018-05-12 19:39] LABS: CLARITY,URINE CLEAR (CLEAR); HCG UR QUAL NEGATIVE
--- NOTE | 2018-05-12 20:04 | XRAY Report ---
Reason: dyspnea Procedure Date: 05/12/2018 Accession Number: [id number] / [id number] Procedure: XR - Chest 2 View X-Ray CPT Code: 08056 FULL RESULT: EXAM: CHEST RADIOGRAPHY EXAM DATE: 05/12/2018 07:08 PM. CLINICAL HISTORY: Dyspnea. COMPARISON: XR CHEST PA AND LAT 12/16/2010 2:39 PM. TECHNIQUE: 2 views. FINDINGS: Lungs/Pleura: No focal opacities evident. No pleural effusion. No pneumothorax. Normal volumes. Mediastinum: Heart and mediastinal contours are unremarkable. Other: No bony abnormalities noted. IMPRESSION: Normal 2-view chest radiography. RADIA
== END 2018-05-12 20:02 | disposition home or self-care (01) ==
LOC: ED 18:33
DX: R06.00 Dyspnea, unspecified (principal); F17.200 Nicotine dependence, unspecified, uncomplicated
CPT/HCPCS: 36415; 71046; 80053; 81001; 81003; 81025; 83690; 85025; 85379; 87086; 93005; 99283

== ENCOUNTER 2018-06-28 19:31 | Emergency (ER) | payer MEDICAID ==
[2018-06-28 19:41] VITALS: BP 136/92
[2018-06-28] MEDS ORDERED: GABAPENTIN 100 MG CAPSULE PO STA (19:55)
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
== END 2018-06-28 20:02 | disposition home or self-care (01) ==
LOC: ED 19:31
DX: M54.5 Low back pain (principal); G89.29 Other chronic pain; Z76.0 Encounter for issue of repeat prescription; R03.0 Elevated blood-pressure reading, without diagnosis of hypertension; F17.200 Nicotine dependence, unspecified, uncomplicated
CPT/HCPCS: 99282; 99283; A9270

== ENCOUNTER 2018-10-17 14:56 | Emergency (ER) | payer MEDICAID ==
[2018-10-17 15:20] VITALS: BP 131/86
--- NOTE | 2018-10-17 15:35 | ED Physician Documentation ---
PD HPI BACK PAIN - Stated complaint Stated Complaint: MED REFILL - Chief complaint Chief Complaint: General - History obtained from History obtained from: Patient - History of Present Illness Timing - onset: How many weeks ago (has had increasing back pain but no seizures, since running out of her gabapentin.) Timing - duration: Days (chronic back pain but otherwise the pain is worse today.) Timing - details: Gradual onset, Waxing and waning Location: Lower, Left Quality: Pain, Spasm Improves with: Position Worsened by: Movement Contributing factors: No: Lifting, Twisting Review of Systems Constitutional: denies: Fever, Chills, Myalgias Eyes: denies: Loss of vision, Decreased vision, Photophobia Nose: denies: Rhinorrhea / runny nose, Congestion Throat: denies: Sore throat Respiratory: denies: Cough Neurologic: reports: Generalized weakness. 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 02/10/17 Chlorhexidine Gluconate [Hibiclens] 5 ml TP DAILY #1 bot 03/30/17 Gabapentin 600 mg PO QID #40 tablet 03/30/17 Mupirocin 1 gm ALICIA BID #2 tub 03/30/17 Sulfamethoxazole/Trimethoprim 1 each PO BID 10 Days tablet 03/30/17 [Sulfamethoxazole-Tmp Ds Tablet] Gabapentin 600 mg PO QID #120 tablet 05/17/17 Cephalexin [Keflex] 500 mg PO TID #20 capsule 08/18/17 Gabapentin 600 mg PO QID #100 tablet 08/18/17 Naproxen 375 mg PO BID #20 tablet 08/18/17 Clindamycin HCl [Clindamycin 300MG 300 mg PO Q6H 7 Days capsule 09/28/17 CAP] Cephalexin [Keflex] 500 mg PO TID #21 capsule 11/16/17 HYDROcod/ACETAM 5/325 [[place] 5/325] 1 tab PO Q6H PRN #20 tablet 11/16/17 Oxycodone HCl 10 mg PO Q6HR PRN #10 tablet 12/27/17 Gabapentin 600 mg PO TID #21 tablet 03/19/18 Albuterol Sulf [Ventolin Hfa 1 - 2 puffs INH Q4HR PRN #1 inhaler 05/12/18 Inhaler] Gabapentin 600 mg PO TID #9 tablet 06/28/18 Gabapentin 600 mg PO TID #90 tablet 10/17/18 - Allergies Allergies/Adverse Reactions: Allergies Allergy/AdvReac Type Severity Reaction Status Date / Time codeine Allergy Hives Verified 10/17/18 15:20 nifedipine Allergy Hives Verified 10/17/18 15:20 - Social History Does the pt smoke?: Yes Smoking Status: Current every day smoker Does the pt drink ETOH?: No Does the pt have substance abuse?: No - Immunizations Immunizations are current?: Yes - POLST Patient has POLST: No PD ED PE NORMAL - Vitals Vital signs reviewed: Yes - General General: Alert and oriented X 3, No acute distress, Well developed/nourished - HEENT HEENT: Pharynx benign - Neck Neck: Supple, no meningeal sign, No adenopathy - Cardiac Cardiac: RRR, No murmur - Respiratory Respiratory: Clear bilaterally - Derm Derm: Normal color, Warm and dry, No rash - Extremities Extremities: No tenderness to palpate, Normal ROM s pain, No edema, No calf tenderness / cord Results - Vitals Vitals: Oxygen O2 Source Room air Departure - Departure Disposition: Home, Self Care Clinical Impression: Seizure disorder, No mechanism for timely refill of medication Sciatica Qualifiers: Laterality: unspecified laterality Qualified Code(s): M54.30 - Sciatica, unspecified side Condition: Stable Record reviewed to determine appropriate education?: Yes Follow-Up: [facility] [Provider Group] Prescriptions: Gabapentin 600 mg PO TID #90 tablet Comments: Continue usual medications. Follow-up with the new clinic provider at first available appointment. Stay well-hydrated. Return as needed. Discharge Date/Time: 10/17/18 16:00
[2018-10-17] MEDS ORDERED: GABAPENTIN 100 MG CAPSULE PO STA (15:47)
== END 2018-10-17 16:00 | disposition home or self-care (01) ==
LOC: ED 14:56
DX: M54.40 Lumbago with sciatica, unspecified side (principal); G40.909 Epilepsy, unspecified, not intractable, without status epilepticus; F17.200 Nicotine dependence, unspecified, uncomplicated
CPT/HCPCS: 99281; 99283; A9270

== ENCOUNTER 2019-05-16 17:40 | Outpatient (CLI) | payer MEDICAID ==
[2019-05-16 18:27] LABS: BASOPHILS % (AUTO) 0.1 %; EOSINOPHILS % (AUTO) 0.1 %; HGB - HEMOGLOBIN 12.7 g/dL (12.0-16.0); MEAN CORPUSCULAR HEMOGLOBIN 32.1 pg (27.0-31.0); MEAN CORPUSCULAR VOLUME 97.2 fL (81.0-99.0); MEAN PLATELET VOLUME 11.9 fL (7.9-10.8); MONOCYTES # (AUTO) 0.3 10^3/uL (0.0-1.0); MONOCYTES % (AUTO) 4.4 %; NEUTROPHILS # (AUTO) 5.2 10^3/uL (1.5-6.6); NEUTROPHILS % (AUTO) 69.3 %; PLT - PLATELET COUNT 157 10^3/uL (130-450); RED BLOOD COUNT 3.96 10^6/uL (4.20-5.40); RED CELL DISTRIBUTION WIDTH 12.7 % (12.0-15.0); WHITE BLOOD COUNT 7.6 x10^3/uL (4.8-10.8)
[2019-05-16 18:29] LABS: ALBUMIN 4.1 g/dL (3.2-5.5); BILIRUBIN,DIRECT 0.1 mg/dL (0.1-0.5); BILIRUBIN,TOTAL 0.4 mg/dL (0.2-1.0); CREATININE 0.6 mg/dL (0.4-1.0); TOTAL PROTEIN 6.7 g/dL (6.7-8.2)
[2019-05-18 13:56] LABS: HEPATITIS B SURFACE ANTIGEN NON-REACTIVE (NON-REACTIVE)
[2019-05-18 14:12] LABS: HIV AG/AB 4TH GEN NON-REACTIVE (NON-REACTIVE)
[2019-05-20 17:44] LABS: HEPATITIS C VIRAL RNA GENOTYPE NOT DETECTED
== END 2019-05-16 17:41 | disposition home or self-care (01) ==
LOC: LAB 17:40
PROVIDERS: ATTEND Emergency Medicine
DX: F11.20 Opioid dependence, uncomplicated (principal)
CPT/HCPCS: 36415; 80048; 80076; 81599; 85025; 86704; 86708; 86709; 87340; 87389; 87902

== ENCOUNTER 2019-06-12 15:20 | Emergency (ER) | payer MEDICAID ==
[2019-06-12 15:36] VITALS: BP 124/67
--- NOTE | 2019-06-12 15:50 | ED Physician Documentation ---
History of Present Illness - Stated complaint Stated Complaint: MED REFILL - Chief complaint Chief Complaint: General - History obtained from History obtained from: Patient - History of Present Illness Timing: Chronic (Chronically on gabapentin, going on a road trip and requests 2 weeks of meds. 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 02/10/17 Chlorhexidine Gluconate [Hibiclens] 5 ml TP DAILY #1 bot 03/30/17 Gabapentin 600 mg PO QID #40 tablet 03/30/17 Mupirocin 1 gm ALICIA BID #2 tub 03/30/17 Sulfamethoxazole/Trimethoprim 1 each PO BID 10 Days tablet 03/30/17 [Sulfamethoxazole-Tmp Ds Tablet] Gabapentin 600 mg PO QID #120 tablet 05/17/17 Cephalexin [Keflex] 500 mg PO TID #20 capsule 08/18/17 Gabapentin 600 mg PO QID #100 tablet 08/18/17 Naproxen 375 mg PO BID #20 tablet 08/18/17 Clindamycin HCl [Clindamycin 300MG 300 mg PO Q6H 7 Days capsule 09/28/17 CAP] Cephalexin [Keflex] 500 mg PO TID #21 capsule 11/16/17 HYDROcod/ACETAM 5/325 [[place] 5/325] 1 tab PO Q6H PRN #20 tablet 11/16/17 Oxycodone HCl 10 mg PO Q6HR PRN #10 tablet 12/27/17 Gabapentin 600 mg PO TID #21 tablet 03/19/18 Albuterol Sulf [Ventolin Hfa 1 - 2 puffs INH Q4HR PRN #1 inhaler 05/12/18 Inhaler] Gabapentin 600 mg PO TID #9 tablet 06/28/18 Gabapentin 600 mg PO TID #90 tablet 10/17/18 Gabapentin 600 mg PO TID #3 tablet 06/12/19 - Allergies Allergies/Adverse Reactions: Allergies Allergy/AdvReac Type Severity Reaction Status Date / Time codeine Allergy Hives Verified 06/12/19 15:33 nifedipine Allergy Hives Verified 06/12/19 15:33 - Social History Does the pt smoke?: Yes Smoking Status: Current every day smoker Does the pt drink ETOH?: No Does the pt have substance abuse?: No - Immunizations Immunizations are current?: Yes - POLST Patient has POLST: No PD ED PE NORMAL - Vitals Vital signs reviewed: Yes - General General: Alert and oriented X 3, No acute distress - Neuro Neuro: Alert and oriented X 3, Normal speech Eye Opening: Spontaneous Motor: Obeys Commands Verbal: Oriented GCS Score: 15 - Psych Psych: Normal mood, Normal affect Results - Vitals Vitals: Vital Signs - 24 hr 06/12/19 15:33 Temperature 36.9 C Heart Rate 75 Respiratory 17 Rate Blood Pressure 124/67 O2 Saturation 100 Oxygen O2 Source Room air PD MEDICAL DECISION MAKING - ED course ED course: Patient seen and examined, there is no emergency medical condition. I discussed with her new group norms which mandated no refills for gabapentin. She was given enough to get through till tomorrow (#3) to see her primary care physician. Departure - Departure Disposition: 01 Home, Self Care Clinical Impression: Medication refill Condition: Good Record reviewed to determine appropriate education?: Yes Instructions: ED Chronic Pain Management Prescriptions: Gabapentin 600 mg PO TID #3 tablet Comments: As discussed, per new policy we cannot continue to give refills for gabapentin for chronic ongoing management. Discharge Date/Time: 06/12/19 15:53
== END 2019-06-12 15:53 | disposition home or self-care (01) ==
LOC: ED 15:20
DX: Z76.0 Encounter for issue of repeat prescription (principal); F17.200 Nicotine dependence, unspecified, uncomplicated
CPT/HCPCS: 99282; 99283

== ENCOUNTER 2020-03-04 19:03 | Outpatient (CLI) | payer MEDICAID | END 2020-03-04 19:04 | disposition EMS.NT | LOC: EMS 19:03 | PROVIDERS: ATTEND Surgery | DX: Z03.89 Encounter for observation for other suspected diseases and conditions ruled out (principal) ==

== ENCOUNTER 2020-12-03 20:07 | Emergency (ER) | payer MEDICAID ==
[2020-12-03 20:24] VITALS: BP 130/85
[2020-12-03] MEDS ORDERED: DOXYCYCLINE 100 MG TABLET PO STA (21:18)
--- NOTE | 2020-12-03 21:20 | ED Physician Documentation ---
PD HPI URI - Stated complaint Stated Complaint: RUNNY NOSE,COUGH,FEVER - Chief complaint Chief Complaint: Fever - History obtained from History obtained from: Patient - Additional information Additional information: Sick for about 7 days with productive cough, fevers up to 103, runny nose and body aches. She has been immunized against Covid with [employer] vaccine. Multiple sick contacts in the family with viral URI symptoms. 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 02/10/17 Chlorhexidine Gluconate [Hibiclens] 5 ml TP DAILY #1 bot 03/30/17 Gabapentin 600 mg PO QID #40 tablet 03/30/17 Mupirocin 1 gm ALICIA BID #2 tub 03/30/17 Sulfamethoxazole/Trimethoprim 1 each PO BID 10 Days tablet 03/30/17 [Sulfamethoxazole-Tmp Ds Tablet] Gabapentin 600 mg PO QID #120 tablet 05/17/17 Gabapentin 600 mg PO QID #100 tablet 08/18/17 Naproxen 375 mg PO BID #20 tablet 08/18/17 cephALEXin [Keflex] 500 mg PO TID #20 capsule 08/18/17 Clindamycin HCl [Clindamycin 300MG 300 mg PO Q6H 7 Days capsule 09/28/17 CAP] HYDROcod/ACETAM 5/325 [[place] 5/325] 1 tab PO Q6H PRN #20 tablet 11/16/17 cephALEXin [Keflex] 500 mg PO TID #21 capsule 11/16/17 Oxycodone HCl 10 mg PO Q6HR PRN #10 tablet 12/27/17 Gabapentin 600 mg PO TID #21 tablet 03/19/18 Albuterol Sulf [Ventolin Hfa 1 - 2 puffs INH Q4HR PRN #1 inhaler 05/12/18 Inhaler] Gabapentin 600 mg PO TID #9 tablet 06/28/18 Gabapentin 600 mg PO TID #90 tablet 10/17/18 Gabapentin 600 mg PO TID #3 tablet 06/12/19 Albuterol Sulf [Ventolin Hfa 1 - 2 puffs INH Q4HR PRN #1 inhaler 12/03/20 Inhaler] Doxycycline Hyclate 100 mg PO BID #14 12/03/20 - Allergies Allergies/Adverse Reactions: Allergies Allergy/AdvReac Type Severity Reaction Status Date / Time codeine Allergy Hives Verified 12/03/20 20:21 nifedipine Allergy Hives Verified 12/03/20 20:21 - Social History Does the pt smoke?: Yes Smoking Status: Current every day smoker Does the pt drink ETOH?: No Does the pt have substance abuse?: No - Immunizations Immunizations are current?: Yes - POLST Patient has POLST: No PD ED PE NORMAL - Vitals Vital signs reviewed: Yes - General General: Alert and oriented X 3, No acute distress - HEENT HEENT: PERRL, Pharynx benign - Neck Neck: Supple, no meningeal sign, No bony TTP - Cardiac Cardiac: RRR, No murmur - Respiratory Respiratory: No respiratory distress, Other (Rhonchorous and wheezy throughout without specific focal findings.) - Neuro Neuro: Alert and oriented X 3, Normal speech Results - Vitals Vitals: Vital Signs - 24 hr 12/03/20 20:21 Temperature 36.5 C Heart Rate 82 Respiratory 16 Rate Blood Pressure 130/85 H O2 Saturation 97 Oxygen O2 Source Room air PD MEDICAL DECISION MAKING - ED course ED course: 30-year-old with bronchitis, Covid test offered and declined. Given the time course she would benefit from antibiotic therapy especially in light of high fevers. Departure - Departure Disposition: 01 Home, Self Care Clinical Impression: Bronchitis Condition: Good Record reviewed to determine appropriate education?: Yes Instructions: ED Upper Resp Infec Abx Tx Prescriptions: Albuterol Sulf [Ventolin Hfa Inhaler] 1 - 2 puffs INH Q4HR PRN #1 inhaler PRN Reason: Shortness Of Air/Wheezing Doxycycline Hyclate 100 mg PO BID #14 Comments: Call your doctor to arrange a follow-up appointment, make the next available appointment. In the interim, return anytime if worse or if new symptoms develop.
== END 2020-12-03 21:42 | disposition home or self-care (01) ==
LOC: ED 20:07
DX: J40 Bronchitis, not specified as acute or chronic (principal); F17.200 Nicotine dependence, unspecified, uncomplicated
CPT/HCPCS: 99282; 99283; A9270

== ENCOUNTER 2022-02-01 16:42 | Emergency (ER) | payer MEDICAID ==
--- NOTE | 2022-02-01 17:03 | ED Physician Documentation ---
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 For the last 8 days she is having every few minutes of feeling of a skipped heartbeat that knocked the wind out of her. She also noticed some hair loss. She had had this before but never so frequent. She has decreased her caffeine use. Denies pedal edema or calf pain. Review of Systems Ten Systems: 10 systems reviewed and negative Constitutional: reports: Fatigue. 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 02/10/17 Chlorhexidine Gluconate [Hibiclens] 5 ml TP DAILY #1 bot 03/30/17 Gabapentin 600 mg PO QID #40 tablet 03/30/17 Mupirocin 1 gm ALICIA BID #2 tub 03/30/17 Sulfamethoxazole/Trimethoprim 1 each PO BID 10 Days tablet 03/30/17 [Sulfamethoxazole-Tmp Ds Tablet] Gabapentin 600 mg PO QID #120 tablet 05/17/17 Gabapentin 600 mg PO QID #100 tablet 08/18/17 Naproxen 375 mg PO BID #20 tablet 08/18/17 cephALEXin [Keflex] 500 mg PO TID #20 capsule 08/18/17 Clindamycin HCl [Clindamycin 300MG 300 mg PO Q6H 7 Days capsule 09/28/17 CAP] HYDROcod/ACETAM 5/325 [[place] 5/325] 1 tab PO Q6H PRN #20 tablet 11/16/17 cephALEXin [Keflex] 500 mg PO TID #21 capsule 11/16/17 Oxycodone HCl 10 mg PO Q6HR PRN #10 tablet 12/27/17 Gabapentin 600 mg PO TID #21 tablet 03/19/18 Albuterol Sulf [Ventolin Hfa 1 - 2 puffs INH Q4HR PRN #1 inhaler 05/12/18 Inhaler] Gabapentin 600 mg PO TID #9 tablet 06/28/18 Gabapentin 600 mg PO TID #90 tablet 10/17/18 Gabapentin 600 mg PO TID #3 tablet 06/12/19 Albuterol Sulf [Ventolin Hfa 1 - 2 puffs INH Q4HR PRN #1 inhaler 12/03/20 Inhaler] Doxycycline Hyclate 100 mg PO BID #14 12/03/20 Magnesium Oxide [Mag Ox] 400 mg PO 0800 #30 tablet 02/01/22 Metoprolol Succinate [Toprol Xl] 25 mg PO DAILY #30 tablet 02/01/22 - Allergies Allergies/Adverse Reactions: Allergies Allergy/AdvReac Type Severity Reaction Status Date / Time codeine Allergy Hives Verified 02/01/22 16:56 nifedipine Allergy Hives Verified 02/01/22 16:56 - Social History Does the pt smoke?: Yes Smoking Status: Current every day smoker Does the pt drink ETOH?: No Does the pt have substance abuse?: No - Immunizations Immunizations are current?: Yes - POLST Patient has POLST: No PD ED PE NORMAL - Vitals Vital signs reviewed: Yes - General General: Alert and oriented X 3, No acute distress - HEENT HEENT: PERRL, EOMI - Neck Neck: Supple, no meningeal sign, No bony TTP - Cardiac Cardiac: RRR, No murmur - Respiratory Respiratory: No respiratory distress, Clear bilaterally - Abdomen Abdomen: Non tender - Derm Derm: Normal color, Warm and dry - Extremities Extremities: No edema, No calf tenderness / cord - Neuro Neuro: Alert and oriented X 3, Normal speech Results - Vitals Vitals: Vital Signs - 24 hr 02/01/22 16:53 Temperature 37.0 C Heart Rate 93 Respiratory 20 Rate Blood Pressure 135/101 H O2 Saturation 100 Oxygen O2 Source Room air - EKG (time done) 1651 Rate: Rate (enter#) (98) Rhythm: NSR [place]: Normal Intervals: Other (short BING but no delta wave) QRS: Normal Ischemia: Normal ST segments - Labs Labs: Laboratory Tests 02/01/22 02/01/22 02/01/22 17:10 17:10 17:10 WBC 8.7 RBC 4.13 L Hgb 15.2 Hct 42.5 MCV 102.9 H MCH 36.8 H MCHC 35.8 RDW 12.6 Plt Count 164 MPV 10.1 Neut # (Auto) 5.4 Lymph # (Auto) 2.5 Garza # (Auto) 0.7 Eos # (Auto) 0.0 Baso # (Auto) 0.0 Absolute Nucleated RBC 0.00 Nucleated RBC % 0.0 Sodium 136 Potassium 3.7 Chloride 99 L Carbon Dioxide 29 Anion Gap 8.0 BUN 10 Creatinine 0.8 Estimated GFR (MDRD) 84 L Glucose 110 H Calcium 9.5 Magnesium 1.5 L Total Bilirubin 1.3 H AST 63 H ALT 43 Alkaline Phosphatase 80 Total Protein 6.9 Albumin 4.3 Globulin 2.6 Albumin/Globulin Ratio 1.7 TSH 2.85 Urine Color Urine Clarity Urine pH Ur Specific [place] Urine Protein Urine Glucose (UA) Urine Ketones Urine Occult Blood Urine Nitrite Urine Bilirubin Urine Urobilinogen Ur Leukocyte Esterase Urine RBC Urine WBC Ur Squamous Epith Cells Urine Bacteria Ur Microscopic Review Urine Culture Comments Urine HCG, Qual 02/01/22 17:29 WBC RBC Hgb Hct MCV MCH MCHC RDW Plt Count MPV Neut # (Auto) Lymph # (Auto) Garza # (Auto) Eos # (Auto) Baso # (Auto) Absolute Nucleated RBC Nucleated RBC % Sodium Potassium Chloride Carbon Dioxide Anion Gap BUN Creatinine Estimated GFR (MDRD) Glucose Calcium Magnesium Total Bilirubin AST ALT Alkaline Phosphatase Total Protein Albumin Globulin Albumin/Globulin Ratio TSH Urine Color DARK YELLOW Urine Clarity HAZY Urine pH 6.0 Ur Specific [place] >=1.030 H Urine Protein NEGATIVE Urine Glucose (UA) NEGATIVE Urine Ketones NEGATIVE Urine Occult Blood NEGATIVE Urine Nitrite POSITIVE H Urine Bilirubin NEGATIVE Urine Urobilinogen 0.2 (NORMAL) Ur Leukocyte Esterase NEGATIVE Urine RBC None Seen Urine WBC 4-5 Ur Squamous Epith Cells MANY Squamous H Urine Bacteria Many H Ur Microscopic Review INDICATED Urine Culture Comments NOT INDICATED Urine HCG, Qual NEGATIVE PD MEDICAL DECISION MAKING - ED course ED course: While I am interviewing her she has no ectopy, but shortly after initial evaluation I asked her to press the call tuttle if she felt the palpitations. She did and on the monitor this corresponded to very occasional PVCs. We discussed medical treatment for this with beta-blockade and she would like to go ahead with that. 31-year-old woman presents with symptomatic PVCs. Resolution of her symptoms after the administration of 5 mg IV metoprolol. Lab work notable for low magnesium repleted IV. Departure - Departure Disposition: Home, Self Care Clinical Impression: PVCs (premature ventricular contractions) Condition: Good Record reviewed to determine appropriate education?: Yes Instructions: ED Palpitations Prescriptions: Magnesium Oxide [Mag Ox] 400 mg PO 0800 #30 tablet Metoprolol Succinate [Toprol Xl] 25 mg PO DAILY #30 tablet Comments: You are seen today for premature ventricular contractions, this may be due to your low magnesium level. I am prescribing a magnesium supplement and also the metoprolol which is the medication we gave you here that was helpful. You may not need to take the metoprolol long-term if the magnesium supplement is sufficient. Return for new or worsening symptoms. Follow-up with your primary care physician, next available appointment.
[2022-02-01] MEDS ORDERED: METOPROLOL 5 MG/5 ML VIAL IVP STA (17:06)
[2022-02-01 17:15] LABS: BASOPHILS % (AUTO) 0.1 %; HCT - HEMATOCRIT 42.5 % (37.0-47.0); HGB - HEMOGLOBIN 15.2 g/dL (12.0-16.0); LYMPHOCYTES # (AUTO) 2.5 10^3/uL (1.5-3.5); LYMPHOCYTES % (AUTO) 29.3 %; MEAN CORPUSCULAR HEMOGLOBIN 36.8 pg (27.0-31.0); MEAN CORPUSCULAR HGB CONC 35.8 g/dL (32.0-36.0); MEAN CORPUSCULAR VOLUME 102.9 fL (81.0-99.0); MEAN PLATELET VOLUME 10.1 fL (7.9-10.8); MONOCYTES # (AUTO) 0.7 10^3/uL (0.0-1.0); MONOCYTES % (AUTO) 7.7 %; NEUTROPHILS # (AUTO) 5.4 10^3/uL (1.5-6.6); NEUTROPHILS % (AUTO) 62.7 %; PLT - PLATELET COUNT 164 10^3/uL (130-450); RED BLOOD COUNT 4.13 10^6/uL (4.20-5.40); RED CELL DISTRIBUTION WIDTH 12.6 % (12.0-15.0); WHITE BLOOD COUNT 8.7 x10^3/uL (4.8-10.8)
[2022-02-01 17:28] LABS: ALBUMIN 4.3 g/dL (3.2-5.5); ALBUMIN/GLOBULIN RATIO 1.7 (1.0-2.2); BILIRUBIN,TOTAL 1.3 mg/dL (0.2-1.0); CALCIUM 9.5 mg/dL (8.5-10.3); CREATININE 0.8 mg/dL (0.4-1.0); MAGNESIUM 1.5 mg/dL (1.7-2.8); POTASSIUM 3.7 mmol/L (3.5-5.0); TOTAL PROTEIN 6.9 g/dL (6.7-8.2)
[2022-02-01 17:39] LABS: BILIRUBIN,URINE NEGATIVE (NEGATIVE); GLUCOSE, URINE (UA) NEGATIVE (NEGATIVE); KETONES,URINE (UA) NEGATIVE (NEGATIVE); LEUKOCYTE ESTERASE, URINE NEGATIVE (NEGATIVE); NITRITE,URINE POSITIVE (NEGATIVE); OCCULT BLOOD,URINE NEGATIVE (NEGATIVE); PROTEIN,URINE NEGATIVE (NEGATIVE); UROBILINOGEN,URINE 0.2 (NORMAL) E.U./dL (NORMAL)
[2022-02-01 17:41] LABS: CLARITY,URINE HAZY (CLEAR); HCG UR QUAL NEGATIVE
[2022-02-01] MEDS ORDERED: MAGNESIUM SULFATE 2 GRAM 2 GM/50 ML BAG IV ONE (17:41)
[2022-02-01 17:46] LABS: BACTERIA,URINE Many /HPF (None Seen); RBC,URINE None Seen /HPF (0-5); SQUAMOUS EPITHELIAL CELL,UR MANY Squamous (<= Few)
[2022-02-01 18:48] VITALS: BP 120/88
== END 2022-02-01 18:51 | disposition home or self-care (01) ==
LOC: ED 16:42
DX: I49.3 Ventricular premature depolarization (principal); F17.200 Nicotine dependence, unspecified, uncomplicated
CPT/HCPCS: 36415; 80053; 81001; 81003; 81025; 83735; 84443; 85025; 87086; 93005; 96365; 96375; 99284

== ENCOUNTER 2023-09-24 18:59 | Emergency (ER) | payer MEDICAID ==
[2023-09-24 19:43] VITALS: BP 142/92; O2SAT 100
[2023-09-24 20:01] LABS: BASOPHILS % (AUTO) 0.4 %; EOSINOPHILS % (AUTO) 0.2 %; HCT - HEMATOCRIT 37.9 % (37.0-47.0); HGB - HEMOGLOBIN 12.1 g/dL (12.0-16.0); LYMPHOCYTES # (AUTO) 1.2 10^3/uL (1.5-3.5); LYMPHOCYTES % (AUTO) 21.8 %; MEAN CORPUSCULAR HEMOGLOBIN 31.5 pg (27.0-31.0); MEAN CORPUSCULAR HGB CONC 31.9 g/dL (32.0-36.0); MEAN CORPUSCULAR VOLUME 98.7 fL (81.0-99.0); MEAN PLATELET VOLUME 9.7 fL (7.9-10.8); MONOCYTES # (AUTO) 0.4 10^3/uL (0.0-1.0); MONOCYTES % (AUTO) 7.5 %; NEUTROPHILS # (AUTO) 3.7 10^3/uL (1.5-6.6); NEUTROPHILS % (AUTO) 69.9 %; PLT - PLATELET COUNT 190 10^3/uL (130-450); RED BLOOD COUNT 3.84 10^6/uL (4.20-5.40); RED CELL DISTRIBUTION WIDTH 12.4 % (12.0-15.0); WHITE BLOOD COUNT 5.3 x10^3/uL (4.8-10.8)
[2023-09-24 20:17] LABS: ALBUMIN 3.7 g/dL (3.2-5.5); ALBUMIN/GLOBULIN RATIO 1.3 (1.0-2.2); BILIRUBIN,TOTAL 0.2 mg/dL (0.2-1.0); CALCIUM 9.5 mg/dL (8.5-10.3); CREATININE 0.6 mg/dL (0.6-1.3); MAGNESIUM 1.5 mg/dL (1.7-2.3); POTASSIUM 4.3 mmol/L (3.5-4.5); TOTAL PROTEIN 6.5 g/dL (6.4-8.9)
--- NOTE | 2023-09-24 20:33 | ED Physician Documentation ---
History of Present Illness - Stated complaint Stated Complaint: BODY SWELLING - Chief complaint Chief Complaint: General - Additonal information Additional information: 33-year-old female presents emergency department for concerns of body swelling and weight gain. Patient said about 3 weeks ago she was about 150 pounds and within the last 2 weeks has had increase in weight gain of about 50 pounds. No recent fevers or chills she says both of her legs are quite itchy very swollen. No nausea vomiting no recent fevers or chills. Patient denies any illicit drug use. PD PAST MEDICAL HISTORY - Past Medical History Past Medical History: Yes Cardiovascular: None Respiratory: Asthma Neuro: Seizure disorder Endocrine/Autoimmune: None GI: None [employer]: None : None HEENT: None Psych: None Musculoskeletal: Chronic back pain Derm: None - Past Surgical History Past Surgical History: Yes General: Cholecystectomy HEENT: Tonsil/Adenoidectomy - Present Medications Home Medications: Ambulatory Orders Medication Instructions Recorded Confirmed Gabapentin 600 mg PO TID #3 tablet 06/12/19 Furosemide [Lasix] 20 mg PO DAILY 5 Days #5 tablet 09/24/23 QUEtiapine [SEROquel] 50 mg PO DAILY 09/24/23 - Allergies Allergies/Adverse Reactions: Allergies Allergy/AdvReac Type Severity Reaction Status Date / Time codeine Allergy Hives Verified 09/24/23 19:43 nifedipine Allergy Hives Verified 09/24/23 19:43 - Social History Does the pt smoke?: Yes Smoking Status: Current every day smoker Does the pt drink ETOH?: No Does the pt have substance abuse?: No - Immunizations Immunizations are current?: Yes - POLST Patient has POLST: No PD ED PE NORMAL - Vitals Vital signs reviewed: Yes - General General: Alert and oriented X 3, No acute distress, Well developed/nourished - Cardiac Cardiac: RRR, No murmur, No gallop, Strong equal pulses - Respiratory Respiratory: No respiratory distress, Clear bilaterally, Other (Diminished bilaterally) - Abdomen Abdomen: Normal bowel sounds, Soft, Non tender - Back Back: No CVA TTP - Extremities Extremities: Other (None pitting bilateral lower extremity edema) - Psych Psych: Normal mood, Normal affect Results - Vitals Vitals: Vital Signs - 24 hr 09/24/23 09/24/23 19:37 21:37 Temperature 37.0 C 36.5 C Heart Rate 92 Respiratory 17 Rate Blood Pressure 142/92 H O2 Saturation 100 Oxygen O2 Source Room air - Labs Labs: Laboratory Tests 09/24/23 09/24/23 09/24/23 19:53 19:53 19:53 WBC 5.3 RBC 3.84 L Hgb 12.1 Hct 37.9 MCV 98.7 MCH 31.5 H MCHC 31.9 L RDW 12.4 Plt Count 190 MPV 9.7 Neut # (Auto) 3.7 Lymph # (Auto) 1.2 L [place] # (Auto) 0.4 Eos # (Auto) 0.0 Baso # (Auto) 0.0 Absolute Nucleated RBC 0.00 Nucleated RBC % 0.0 Sodium 139 Potassium 4.3 Chloride 102 Carbon Dioxide 35 H Anion Gap 2.0 L BUN 6 Creatinine 0.6 Estimated GFR (MDRD) 115 Glucose 102 Calcium 9.5 Magnesium 1.5 L Total Bilirubin 0.2 AST 21 ALT 25 Alkaline Phosphatase 123 H B-Natriuretic Peptide 12 Total Protein 6.5 Albumin 3.7 Globulin 2.8 Albumin/Globulin Ratio 1.3 Lipase 27 Urine Color Urine Clarity Urine pH Ur Specific [place] Urine Protein Urine Glucose (UA) Urine Ketones Urine Occult Blood Urine Nitrite Urine Bilirubin Urine Urobilinogen Ur Leukocyte Esterase Urine RBC Urine WBC Ur Squamous Epith Cells Amorphous Sediment Urine Bacteria Ur Microscopic Review Urine Culture Comments Urine HCG, Qual Urine Opiates Screen Ur Buprenorphine Scrn Ur Oxycodone Screen Urine Methadone Screen Ur Barbiturates Screen Ur Tricyclics Screen Ur Phencyclidine Scrn Ur Amphetamine Screen U Methamphetamines Scrn U Benzodiazepines Scrn Urine Cocaine Screen U Cannabinoids Screen Ur Drug Screen Comment 09/24/23 09/24/23 20:20 20:20 WBC RBC Hgb Hct MCV MCH MCHC RDW Plt Count MPV Neut # (Auto) Lymph # (Auto) [place] # (Auto) Eos # (Auto) Baso # (Auto) Absolute Nucleated RBC Nucleated RBC % Sodium Potassium Chloride Carbon Dioxide Anion Gap BUN Creatinine Estimated GFR (MDRD) Glucose Calcium Magnesium Total Bilirubin AST ALT Alkaline Phosphatase B-Natriuretic Peptide Total Protein Albumin Globulin Albumin/Globulin Ratio Lipase Urine Color YELLOW Urine Clarity HAZY Urine pH 8.0 H Ur Specific [place] 1.015 Urine Protein NEGATIVE Urine Glucose (UA) NEGATIVE Urine Ketones NEGATIVE Urine Occult Blood NEGATIVE Urine Nitrite NEGATIVE Urine Bilirubin NEGATIVE Urine Urobilinogen 0.2 (NORMAL) Ur Leukocyte Esterase NEGATIVE Urine RBC None Seen Urine WBC 0-3 Ur Squamous Epith Cells FEW Squamous Amorphous Sediment Few Urine Bacteria None Seen Ur Microscopic Review INDICATED Urine Culture Comments NOT INDICATED Urine HCG, Qual NEGATIVE Urine Opiates Screen NEGATIVE Ur Buprenorphine Scrn NEGATIVE Ur Oxycodone Screen NEGATIVE Urine Methadone Screen NEGATIVE Ur Barbiturates Screen NEGATIVE Ur Tricyclics Screen NEGATIVE Ur Phencyclidine Scrn NEGATIVE Ur Amphetamine Screen NEGATIVE U Methamphetamines Scrn NEGATIVE U Benzodiazepines Scrn NEGATIVE Urine Cocaine Screen NEGATIVE U Cannabinoids Screen NEGATIVE Ur Drug Screen Comment CUTOFF CONC BELOW: PD Medical Decision Making - ED course ED course: 33-year-old female presents emergency department for increased generalized body swelling. Labs were complete for further evaluation of this she has no leukocytosis make me less concerned or suspicious for infection. Chemistry does not show any significant electrolyte abnormalities mild hypomagnesemia 1.5. BNP is within normal limits making me less concerned for possible heart failure. Most of her swelling is to her bilateral lower extremities there is no pitting edema both legs feel very hard and swollen with generalized erythema. I considered cellulitis but it is not painful and there is no defined cellulitic border. I also considered a DVT but she does not have unilateral calf pain and does not meet any of the other risk factors for DVT. Urine drug screen was also complete for further evaluation of possible meth induced heart failure and she was found to be negative for all drug screen. I went ahead and gave her a total of 20 mg p.o. furosemide in the emergency department to help her with some diuresing to see if this would help with her full body swelling. A short 5-day prescription was [facility] Patient told to follow-up with her primary care provider soon as possible return precautions given. Departure - Departure Disposition: 01 Home, Self Care Clinical Impression: Swelling of both lower extremities Instructions: Furosemide tablets Prescriptions: Furosemide [Lasix] 20 mg PO DAILY 5 Days #5 tablet Comments: Thank you for trusting us with your care. As we discussed I am not seeing any abnormalities or emergent findings at this point in time although is very important that you follow-up with your primary care provider for further evaluation as to why you are having the swelling. I have given you a one-time dose of Lasix here in the emergency department to see if this helps and I have given you an additional 5-day course of Lasix to see if this helps. Please have repeat labs done and follow-up with primary care provider soon as possible. Come back to the ER if you have any chest pain, shortness of breath, or any fevers chills or worsening symptoms. Forms: PCP List Discharge Date/Time: 09/24/23 21:42
[2023-09-24 20:45] LABS: BILIRUBIN,URINE NEGATIVE (NEGATIVE); GLUCOSE, URINE (UA) NEGATIVE (NEGATIVE); KETONES,URINE (UA) NEGATIVE (NEGATIVE); LEUKOCYTE ESTERASE, URINE NEGATIVE (NEGATIVE); NITRITE,URINE NEGATIVE (NEGATIVE); OCCULT BLOOD,URINE NEGATIVE (NEGATIVE); PROTEIN,URINE NEGATIVE (NEGATIVE); UROBILINOGEN,URINE 0.2 (NORMAL) E.U./dL (NORMAL)
[2023-09-24 20:48] LABS: CLARITY,URINE HAZY (CLEAR); HCG UR QUAL NEGATIVE
[2023-09-24 21:07] LABS: AMORPHOUS SEDIMENT,UR Few /LPF; BACTERIA,URINE None Seen /HPF (None Seen); RBC,URINE None Seen /HPF (0-5); SQUAMOUS EPITHELIAL CELL,UR FEW Squamous (<= Few); WBC,URINE 0-3 /HPF (0-5)
[2023-09-24 21:19] LABS: AMPHETAMINE SCREEN,URINE NEGATIVE (NEGATIVE); BARBITURATE SCREEN,UR NEGATIVE (NEGATIVE); BENZODIAZEPINES SCREEN, URINE NEGATIVE (NEGATIVE); BUPRENORPHINE SCREEN, URINE NEGATIVE (NEGATIVE); COCAINE SCREEN URINE NEGATIVE (NEGATIVE); METHADONE SCREEN, URINE NEGATIVE (NEGATIVE); METHAMPHETAMINES SCREEN, URINE NEGATIVE (NEGATIVE); OPIATE SCREEN, URINE NEGATIVE (NEGATIVE); OXYCODONE SCREEN, URINE NEGATIVE (NEGATIVE); THC CANNABINOID SCREEN, URINE NEGATIVE (NEGATIVE); TRICYCLIC ANTIDEPRESSANT,URINE NEGATIVE (NEGATIVE)
[2023-09-24] MEDS: FUROSEMIDE 20 MG TABLET PO STA (21:32)
== END 2023-09-24 21:42 | disposition home or self-care (01) ==
LOC: ED 18:59
DX: R60.1 Generalized edema (principal); J45.909 Unspecified asthma, uncomplicated; Z79.899 Other long term (current) drug therapy; F17.200 Nicotine dependence, unspecified, uncomplicated
CPT/HCPCS: 36415; 80053; 80306; 81001; 81025; 83690; 83735; 83880; 85025; 99283; 99284; A9270; 81003; 87086